=== PATIENT | female | born 1955 | race Caucasian/White ===

== ENCOUNTER 2023-10-31 04:20 | Day surgery (SDC) | payer OTHER, BC ==
[2023-10-25 10:26] VITALS: BMI 30.4
[2023-10-31] MEDS ORDERED: PROMETHAZINE HCL 25 MG/1 ML VIAL IVPB PRN (08:56)
[2023-10-31] MEDS ORDERED: ONDANSETRON 4 MG/2 ML VIAL IVPUSH PRN (08:56)
[2023-10-31] MEDS ORDERED: oxyCODONE HCL 5 MG TABLET PO PRN (08:56)
[2023-10-31] MEDS ORDERED: ACETAMINOPHEN 1000 MG/100 ML BAG IVPB PRN (08:57)
[2023-10-31] MEDS ORDERED: LACTATED RINGERS SOLUTION 1,000 ML IV SCH (09:00)
[2023-10-31] MEDS ORDERED: PROPOFOL 20 ML ONE (09:02)
[2023-10-31] MEDS ORDERED: LIDOCAINE HCL/PF 2% SDV 5ML VIAL ONE (09:02)
[2023-10-31] MEDS ORDERED: DEXAMETHASONE SOD PHOSPHATE 4 MG/1 ML VIAL ONE (09:02)
[2023-10-31] MEDS ORDERED: MIDAZOLAM HCL 2 MG/2 ML SINGLE DOSE VIAL ONE (09:02)
[2023-10-31] MEDS ORDERED: KETOROLAC TROMETHAMINE 30 MG/1 ML VIAL ONE (09:02)
[2023-10-31] MEDS ORDERED: SEVOFLURANE 250 ML BTL ONE (09:03)
[2023-10-31] MEDS ORDERED: ceFAZolin SODIUM 1 GM VIAL ONE (09:42)
[2023-10-31] MEDS ORDERED: ceFAZolin SODIUM 1 GM VIAL IVPB ONE (09:42)
[2023-10-31] MEDS ORDERED: ACETAMINOPHEN INJECTION 100 ML IVPB ONE (10:28)
[2023-10-31] MEDS ORDERED: ACETAMINOPHEN 1000 MG/100 ML BAG IVPB ONE (10:32)
[2023-10-31 12:11] VITALS: RESP 20; TEMP 98.4
[2023-10-31 14:17] VITALS: BP 178/74; PULSE 61
== END 2023-10-31 13:30 | disposition home or self-care (01) ==
LOC: JASU-SURG 04:20
PROVIDERS: ATTEND Obstetrics & Gynecology
PROC: 0UB98ZZ Excision of Uterus, Via Natural or Artificial Opening Endoscopic (ICD-10-PCS; principal; 2023-10-31 09:00)
DX: C54.1 Malignant neoplasm of endometrium (principal); N95.0 Postmenopausal bleeding
CPT/HCPCS: 86850; 86900; 86901; 88305-TC; 94760; J0131